=== PATIENT | female | born 1990 ===

== ENCOUNTER 2025-02-28 03:24 | Emergency (ER) | payer MEDICAID ==
[~2025-02-28] VITALS: Ht 172.7 cm; Wt 72.7 kg
[~2025-02-28 03:24] MED LIST: ACET1TAB12 PO
[2025-02-28 03:28] VITALS: BP 123/76; PULSE 86; RESP 16; TEMP 98.2; O2SAT 100
[2025-02-28 05:32] LABS: LEUKOCYTE ESTERASE ,URINE NEGATIVE (Neg); NITRITES, URINE NEGATIVE (Neg); OCCULT BLOOD,URINE NEGATIVE (Neg)
[2025-02-28 05:36] LABS: UA COLLECTION TYPE CLN CATCH MIDSTREAM
[2025-02-28 05:39] LABS: MUCUS STRANDS MODERATE /LPF (Neg); SQUAMOUS EPITHELIAL CELL,UR FEW /LPF (FEW)
== END 2025-02-28 05:39 | disposition left against medical advice (07) ==
LOC: ER 03:26
DX: O26.891 Other specified pregnancy related conditions, first trimester (principal); Z3A.01 Less than 8 weeks gestation of pregnancy; Z53.21 Procedure and treatment not carried out due to patient leaving prior to being seen by health care provider
CPT/HCPCS: 81001; 87088; 99281